=== PATIENT | male | born 1995 | race Asian ===

== ENCOUNTER 2016-12-18 15:21 | Emergency (ER) | payer SELFPAY ==
[~2016-12-18] VITALS: Wt 63.0 kg
[2016-12-18 15:26] VITALS: Wt 63.0 kg
[2016-12-18] MEDS ORDERED: SOD CHLORIDE 0.9% 1,000 ML IV STA (16:07)
[2016-12-18] MEDS ORDERED: KETOROLAC 30 MG INJ IV STA (16:07)
--- NOTE | 2016-12-18 17:53 | RADRPT ---
PROCEDURE: CT Abdomen and Pelvis without contrast. CLINICAL INDICATION: Abdominal and pelvic pain. Lower abdominal pain. TECHNIQUE: CT scan of the abdomen and pelvis without contrast was performed. Coronal and sagittal reformatted images were obtained from the axial source images. Images were reviewed on a [employer] PACS workstation. Total exam DLP is 442.95 mGy-cm. CTDIvol is 7.85 mGy. One or more of the [facility] dose reduction techniques were used: Automated exposure control, adjustment of the mA and/or kV according to patient size, use of iterative reconstruction technique. COMPARISON: None. FINDINGS: The lung bases are normal. There is no pleural effusion. The liver is normal in size and attenuation. There is no focal hepatic lesion. The gallbladder and bile ducts are normal. The spleen is normal in size. There is no focal splenic lesion. Both adrenals are normal with no enlargement or mass. The pancreas is unremarkable with no mass or evidence of pancreatitis. There is no renal mass or hydronephrosis. There is no renal calculus or ureteral calculus. The abdominal aorta is not dilated. There is no retroperitoneal lymphadenopathy or mass. There is no pelvic lymphadenopathy or mass. The bladder and distal ureters are normal. The periappendiceal region is unremarkable with no evidence of appendicitis. The appendix is well se en and appears normal. The bowel and mesentery are normal. There is no free fluid or free gas. The osseous structures are unremarkable with no fracture or lytic lesion. IMPRESSION: 1. No urinary tract calculus or hydronephrosis. 2. Normal appendix. 3. Unremarkable CT scan of the abdomen and pelvis. RPTAT: QQ .Kishore Chavez MD, Date Time Electronically viewed and signed by .Kishore Chavez MD, on 12/18/2016 17:53 .R/
--- NOTE | 2016-12-18 17:53 | RADRPT ---
PROCEDURE: CT Abdomen and Pelvis without contrast. CLINICAL INDICATION: Abdominal and pelvic pain. Lower abdominal pain. TECHNIQUE: CT scan of the abdomen and pelvis without contrast was performed. Coronal and sagittal reformatted images were obtained from the axial source images. Images were reviewed on a [employer] PACS workstation. Total exam DLP is 442.95 mGy-cm. CTDIvol is 7.85 mGy. One or more of the [facility] dose reduction techniques were used: Automated exposure control, adjustment of the mA and/or kV according to patient size, use of iterative reconstruction technique. COMPARISON: None. FINDINGS: The lung bases are normal. There is no pleural effusion. The liver is normal in size and attenuation. There is no focal hepatic lesion. The gallbladder and bile ducts are normal. The spleen is normal in size. There is no focal splenic lesion. Both adrenals are normal with no enlargement or mass. The pancreas is unremarkable with no mass or evidence of pancreatitis. There is no renal mass or hydronephrosis. There is no renal calculus or ureteral calculus. The abdominal aorta is not dilated. There is no retroperitoneal lymphadenopathy or mass. There is no pelvic lymphadenopathy or mass. The bladder and distal ureters are normal. The periappendiceal region is unremarkable with no evidence of appendicitis. The appendix is well se en and appears normal. The bowel and mesentery are normal. There is no free fluid or free gas. The osseous structures are unremarkable with no fracture or lytic lesion. IMPRESSION: 1. No urinary tract calculus or hydronephrosis. 2. Normal appendix. 3. Unremarkable CT scan of the abdomen and pelvis. RPTAT: QQ .Kishore Chavez MD, Date Time Electronically viewed and signed by .Kishore Chavez MD, on 12/18/2016 17:53 .R/
[2016-12-18 19:16] VITALS: PULSE 96; RESP 15; TEMP 98.1
[2016-12-18] MEDS ORDERED: ACET325T33 PO (19:23)
[2016-12-18] MEDS ORDERED: IBUP800T25 PO (19:23)
[2016-12-18 19:32] VITALS: BP 90/66
--- NOTE | 2016-12-18 20:26 | ERD ---
ER Documentation Chief Complaint Chief Complaint bib ems c/o abd pain, n/v, sore thoat, farrell HPI 21-year-old male coming in complaining of fever 4 days with headache, sore throat and dry cough. Has mild abdominal pain. Denies vomiting. Denies change in urination or bowel movement. Denies sick contacts. Has not taken medications for fever however has taken Mucinex. Denies medical problems. Denies allergies to medications. Surgical history: Denies. Social history: Smokes marijuana daily. ROS All systems reviewed and are negative except as per history of present illness. Medications Home Meds Active Scripts Ibuprofen* (Motrin*) 800 Mg Tab, 800 MG PO Q6, #30 TAB Prov:RADHA HILTON PA-C 12/18/16 Acetaminophen* (Tylenol*) 325 Mg Tablet, 1 TAB PO Q6 Y for PAIN AND OR ELEVATED TEMP, #20 TAB Prov:RADHA HILTON PA-C 12/18/16 Allergies Allergies: Coded Allergies: No Known Allergy (Unverified , 12/18/16) PMhx/Soc Medical and Surgical Hx: pt denies Medical Hx, pt denies Surgical Hx History of Surgery: No Anesthesia Reaction: No Hx Neurological Disorder: No Hx Respiratory Disorders: No Hx Cardiac Disorders: No Hx Psychiatric Problems: No Hx Miscellaneous Medical Probl: No Hx Alcohol Use: No (denies) Hx Substance Use: No (denies) Hx Tobacco Use: No (denies) Smoking Status: Never smoker Physical Exam Vitals Vital Signs Date Time Temp Pulse Resp B/P Pulse Ox O2 Delivery O2 Flow Rate FiO2 12/18/16 19:32 90/66 12/18/16 19:16 98.1 96 15 89/53 98 Room Air 12/18/16 15:26 100.3 138 20 111/55 98 Physical Exam GENERAL: The patient is well-appearing, well-nourished, in no acute distress HEENT: Atraumatic. Conjunctivae are pink. Pupils equal, round, and reactive to light. There is no scleral icterus. Tympanic membranes clear bilaterally. Oropharynx clear. No nystagmus or photophobia. NECK: C-spine is soft and supple. There is no meningismus. There is no cervical lymphadenopathy. CHEST: Clear to auscultation bilaterally. There are no rales, wheezes or rhonchi. HEART: Regular rate and rhythm. No murmurs, clicks, rubs or gallops. No S3 or S4. ABDOMEN: Normoactive bowel sounds. No distention. No organomegaly. Mild tenderness palpation over the umbilicus. BACK: No midline or flank tenderness. Result Diagram: 12/18/16 1637 12/18/16 1637 Results 24 hrs Laboratory Tests Test 12/18/16 16:30 12/18/16 16:37 Urine Color STRAW Urine Clarity CLEAR Urine pH 7.0 Urine Specific Hardin 1.003 Urine Ketones NEGATIVEmg/dL Urine Nitrite NEGATIVEmg/dL Urine Bilirubin NEGATIVEmg/dL Urine Urobilinogen NEGATIVEmg/dL Urine Leukocyte Esterase NEGATIVELeu/ul Urine Hemoglobin NEGATIVEmg/dL Urine Glucose NEGATIVEmg/dL Urine Total Protein NEGATIVEmg/dl Urine Opiates Screen Negative Urine Barbiturates Negative Urine Amphetamines Screen Negative Urine Benzodiazepines Screen Negative Urine Cocaine Screen Negative Urine Cannabinoids Positive White Blood Count 11.810^3/ul Red Blood Count 5.2010^6/ul Hemoglobin 15.7g/dl Hematocrit 45.7% Mean Corpuscular Volume 87.9fl Mean Corpuscular Hemoglobin 30.2pg Mean Corpuscular Hemoglobin Concent 34.4g/dl Red Cell Distribution Width 13.3% Platelet Count 37943^3/UL Mean Platelet Volume 11.6fl Neutrophils % 84.2% Lymphocytes % 7.2% Monocytes % 7.1% Eosinophils % 0.2% Basophils % 0.5% Nucleated Red Blood Cells % 0.0/100WBC Neutrophils # 9.910^3/ul Lymphocytes # 0.910^3/ul Monocytes # 0.810^3/ul Eosinophils # 0.010^3/ul Basophils # 0.110^3/ul Nucleated Red Blood Cells # 0.010^3/ul Sodium Level 139mmol/L Potassium Level 4.2mmol/L Chloride Level 102mmol/L Carbon Dioxide Level 28mmol/L Anion Gap 13 Blood Urea Nitrogen 9mg/dl Creatinine 0.70mg/dl Glucose Level 88mg/dl Lactic Acid Level 1.0mmol/L Calcium Level 8.9mg/dl Total Bilirubin 0.3mg/dl Direct Bilirubin 0.00mg/dl Indirect Bilirubin 0.3mg/dl Aspartate Amino Transf (AST/SGOT) 104IU/L Alanine Aminotransferase (ALT/SGPT) 148IU/L Alkaline Phosphatase 143IU/L Total Protein 6.9g/dl Albumin 4.2g/dl Globulin 2.70g/dl Albumin/Globulin Ratio 1.55 Lipase 42U/L Current Medications Medications (Trade) Dose Ordered Sig/Osbaldo Route PRN Reason Start Time Stop Time Status Last Admin Dose Admin Sodium Chloride (NS) 1,000 ml @ 1,000 mls/hr Q1H STAT IV 12/18/16 16:07 12/18/16 17:06 DC 12/18/16 16:52 Ketorolac Tromethamine (Toradol) 30 mg ONCE STAT IV 12/18/16 16:07 12/18/16 16:10 DC 12/18/16 16:52 Procedures/MDM DIAGNOSTIC IMAGING REPORT Patient: JOSE ELIAS SMITH : 1995 Age: 21 Sex: M MR #: [id number] DOS: 12/18/16 1607 Ordering MD: MILIND HILTON PA-C Location: E Room/Bed: PROCEDURE: CT Abdomen and Pelvis without contrast. CLINICAL INDICATION: Abdominal and pelvic pain. Lower abdominal pain. TECHNIQUE: CT scan of the abdomen and pelvis without contrast was performed. Coronal and sagittal reformatted images were obtained from the axial source images. Images were reviewed on a high-resolution PACS workstation. Total exam DLP is 442.95 mGy-cm. CTDIvol is 7.85 mGy. One or more of the following dose reduction techniques were used: Automated exposure control, adjustment of the mA and/or kV according to patient size, use of iterative reconstruction technique. COMPARISON: None. FINDINGS: The lung bases are normal. There is no pleural effusion. The liver is normal in size and attenuation. There is no focal hepatic lesion. The gallbladder and bile ducts are normal. The spleen is normal in size. There is no focal splenic lesion. Both adrenals are normal with no enlargement or mass. The pancreas is unremarkable with no mass or evidence of pancreatitis. There is no renal mass or hydronephrosis. There is no renal calculus or ureteral calculus. The abdominal aorta is not dilated. There is no retroperitoneal lymphadenopathy or mass. There is no pelvic lymphadenopathy or mass. The bladder and distal ureters are normal. The periappendiceal region is unremarkable with no evidence of appendicitis. The appendix is well seen and appears normal. The bowel and mesentery are normal. There is no free fluid or free gas. The osseous structures are unremarkable with no fracture or lytic lesion. IMPRESSION: 1. No urinary tract calculus or hydronephrosis. 2. Normal appendix. 3. Unremarkable CT scan of the abdomen and pelvis. ER course: 1 L normal saline given. IV Toradol given. Upon reevaluation patient's symptoms had improved and patient was feeling much better. MDM: 21-year-old male complaining of URI symptoms with abdominal pain. Patient' s exams are not concerning and CT scan is within normal limits. Patient's blood work is within normal limits. Patient likely has viral illness. Patient does not have nuchal rigidity so I will suspicion for meningitis. Patient is discharged with strict ER precautions and recommended to return to the ER symptoms change or worsen. Patient's exam on reevaluation was within normal limits and symptoms had improved. Patient is recommended to follow-up with primary care within 1-2 days for close evaluation. All questions answered at discharge. Departure Diagnosis: Primary Impression: Viral illness Additional Impression: Fever Condition: Stable Patient Instructions: Fever Control (Adult) Referrals: COMMUNITY CLINICS YOU HAVE RECEIVED A MEDICAL SCREENING EXAM AND THE RESULTS INDICATE THAT YOU DO NOT HAVE A CONDITION THAT REQUIRES URGENT TREATMENT IN THE EMERGENCY DEPARTMENT. FURTHER EVALUATION AND TREATMENT OF YOUR CONDITION CAN WAIT UNTIL YOU ARE SEEN IN YOUR DOCTORS OFFICE WITHIN THE NEXT 1-2 DAYS. IT IS YOUR RESPONSIBILITY TO MAKE AN APPOINTMENT FOR FOLOW-UP CARE. IF YOU HAVE A PRIMARY DOCTOR --you should call your primary doctor and schedule an appointment IF YOU DO NOT HAVE A PRIMARY DOCTOR YOU CAN CALL OUR PHYSICIAN REFERRAL HOTLINE AT IF YOU CAN NOT AFFORD TO SEE A PHYSICIAN YOU CAN CHOSE FROM THE FOLLOWING [facility] CLINICS [facility] [address] [facility] [address] [facility]. [facility] [address] [facility] [address] [facility] [address] [facility]. [facility]. [address] Additional Instructions: FOLLOW UP WITH YOUR PRIMARY CARE PHYSICIAN TOMORROW.Return to this facility if you are not improving as expected. RADHA HILTON PA-C Dec 18, 2016 20:26
--- NOTE | 2016-12-18 20:26 | ERD ---
ER Documentation Chief Complaint Chief Complaint bib ems c/o abd pain, n/v, sore thoat, farrell HPI 21-year-old male coming in complaining of fever 4 days with headache, sore throat and dry cough. Has mild abdominal pain. Denies vomiting. Denies change in urination or bowel movement. Denies sick contacts. Has not taken medications for fever however has taken Mucinex. Denies medical problems. Denies allergies to medications. Surgical history: Denies. Social history: Smokes marijuana daily. ROS All systems reviewed and are negative except as per history of present illness. Medications Home Meds Active Scripts Ibuprofen* (Motrin*) 800 Mg Tab, 800 MG PO Q6, #30 TAB Prov:RADHA HILTON PA-C 12/18/16 Acetaminophen* (Tylenol*) 325 Mg Tablet, 1 TAB PO Q6 Y for PAIN AND OR ELEVATED TEMP, #20 TAB Prov:RADHA HILTON PA-C 12/18/16 Allergies Allergies: Coded Allergies: No Known Allergy (Unverified , 12/18/16) PMhx/Soc Medical and Surgical Hx: pt denies Medical Hx, pt denies Surgical Hx History of Surgery: No Anesthesia Reaction: No Hx Neurological Disorder: No Hx Respiratory Disorders: No Hx Cardiac Disorders: No Hx Psychiatric Problems: No Hx Miscellaneous Medical Probl: No Hx Alcohol Use: No (denies) Hx Substance Use: No (denies) Hx Tobacco Use: No (denies) Smoking Status: Never smoker Physical Exam Vitals Vital Signs Date Time Temp Pulse Resp B/P Pulse Ox O2 Delivery O2 Flow Rate FiO2 12/18/16 19:32 90/66 12/18/16 19:16 98.1 96 15 89/53 98 Room Air 12/18/16 15:26 100.3 138 20 111/55 98 Physical Exam GENERAL: The patient is well-appearing, well-nourished, in no acute distress HEENT: Atraumatic. Conjunctivae are pink. Pupils equal, round, and reactive to light. There is no scleral icterus. Tympanic membranes clear bilaterally. Oropharynx clear. No nystagmus or photophobia. NECK: C-spine is soft and supple. There is no meningismus. There is no cervical lymphadenopathy. CHEST: Clear to auscultation bilaterally. There are no rales, wheezes or rhonchi. HEART: Regular rate and rhythm. No murmurs, clicks, rubs or gallops. No S3 or S4. ABDOMEN: Normoactive bowel sounds. No distention. No organomegaly. Mild tenderness palpation over the umbilicus. BACK: No midline or flank tenderness. Result Diagram: 12/18/16 1637 12/18/16 1637 Results 24 hrs Laboratory Tests Test 12/18/16 16:30 12/18/16 16:37 Urine Color STRAW Urine Clarity CLEAR Urine pH 7.0 Urine Specific Cecil 1.003 Urine Ketones NEGATIVEmg/dL Urine Nitrite NEGATIVEmg/dL Urine Bilirubin NEGATIVEmg/dL Urine Urobilinogen NEGATIVEmg/dL Urine Leukocyte Esterase NEGATIVELeu/ul Urine Hemoglobin NEGATIVEmg/dL Urine Glucose NEGATIVEmg/dL Urine Total Protein NEGATIVEmg/dl Urine Opiates Screen Negative Urine Barbiturates Negative Urine Amphetamines Screen Negative Urine Benzodiazepines Screen Negative Urine Cocaine Screen Negative Urine Cannabinoids Positive White Blood Count 11.810^3/ul Red Blood Count 5.2010^6/ul Hemoglobin 15.7g/dl Hematocrit 45.7% Mean Corpuscular Volume 87.9fl Mean Corpuscular Hemoglobin 30.2pg Mean Corpuscular Hemoglobin Concent 34.4g/dl Red Cell Distribution Width 13.3% Platelet Count 09228^3/UL Mean Platelet Volume 11.6fl Neutrophils % 84.2% Lymphocytes % 7.2% Monocytes % 7.1% Eosinophils % 0.2% Basophils % 0.5% Nucleated Red Blood Cells % 0.0/100WBC Neutrophils # 9.910^3/ul Lymphocytes # 0.910^3/ul Monocytes # 0.810^3/ul Eosinophils # 0.010^3/ul Basophils # 0.110^3/ul Nucleated Red Blood Cells # 0.010^3/ul Sodium Level 139mmol/L Potassium Level 4.2mmol/L Chloride Level 102mmol/L Carbon Dioxide Level 28mmol/L Anion Gap 13 Blood Urea Nitrogen 9mg/dl Creatinine 0.70mg/dl Glucose Level 88mg/dl Lactic Acid Level 1.0mmol/L Calcium Level 8.9mg/dl Total Bilirubin 0.3mg/dl Direct Bilirubin 0.00mg/dl Indirect Bilirubin 0.3mg/dl Aspartate Amino Transf (AST/SGOT) 104IU/L Alanine Aminotransferase (ALT/SGPT) 148IU/L Alkaline Phosphatase 143IU/L Total Protein 6.9g/dl Albumin 4.2g/dl Globulin 2.70g/dl Albumin/Globulin Ratio 1.55 Lipase 42U/L Current Medications Medications (Trade) Dose Ordered Sig/Osbaldo Route PRN Reason Start Time Stop Time Status Last Admin Dose Admin Sodium Chloride (NS) 1,000 ml @ 1,000 mls/hr Q1H STAT IV 12/18/16 16:07 12/18/16 17:06 DC 12/18/16 16:52 Ketorolac Tromethamine (Toradol) 30 mg ONCE STAT IV 12/18/16 16:07 12/18/16 16:10 DC 12/18/16 16:52 Procedures/MDM DIAGNOSTIC IMAGING REPORT Patient: JOSE ELIAS SMITH : 1995 Age: 21 Sex: M MR #: [id number] DOS: 12/18/16 1607 Ordering MD: MILIND HILTON PA-C Location: E Room/Bed: PROCEDURE: CT Abdomen and Pelvis without contrast. CLINICAL INDICATION: Abdominal and pelvic pain. Lower abdominal pain. TECHNIQUE: CT scan of the abdomen and pelvis without contrast was performed. Coronal and sagittal reformatted images were obtained from the axial source images. Images were reviewed on a high-resolution PACS workstation. Total exam DLP is 442.95 mGy-cm. CTDIvol is 7.85 mGy. One or more of the following dose reduction techniques were used: Automated exposure control, adjustment of the mA and/or kV according to patient size, use of iterative reconstruction technique. COMPARISON: None. FINDINGS: The lung bases are normal. There is no pleural effusion. The liver is normal in size and attenuation. There is no focal hepatic lesion. The gallbladder and bile ducts are normal. The spleen is normal in size. There is no focal splenic lesion. Both adrenals are normal with no enlargement or mass. The pancreas is unremarkable with no mass or evidence of pancreatitis. There is no renal mass or hydronephrosis. There is no renal calculus or ureteral calculus. The abdominal aorta is not dilated. There is no retroperitoneal lymphadenopathy or mass. There is no pelvic lymphadenopathy or mass. The bladder and distal ureters are normal. The periappendiceal region is unremarkable with no evidence of appendicitis. The appendix is well seen and appears normal. The bowel and mesentery are normal. There is no free fluid or free gas. The osseous structures are unremarkable with no fracture or lytic lesion. IMPRESSION: 1. No urinary tract calculus or hydronephrosis. 2. Normal appendix. 3. Unremarkable CT scan of the abdomen and pelvis. ER course: 1 L normal saline given. IV Toradol given. Upon reevaluation patient's symptoms had improved and patient was feeling much better. MDM: 21-year-old male complaining of URI symptoms with abdominal pain. Patient' s exams are not concerning and CT scan is within normal limits. Patient's blood work is within normal limits. Patient likely has viral illness. Patient does not have nuchal rigidity so I will suspicion for meningitis. Patient is discharged with strict ER precautions and recommended to return to the ER symptoms change or worsen. Patient's exam on reevaluation was within normal limits and symptoms had improved. Patient is recommended to follow-up with primary care within 1-2 days for close evaluation. All questions answered at discharge. Departure Diagnosis: Primary Impression: Viral illness Additional Impression: Fever Condition: Stable Patient Instructions: Fever Control (Adult) Referrals: COMMUNITY CLINICS YOU HAVE RECEIVED A MEDICAL SCREENING EXAM AND THE RESULTS INDICATE THAT YOU DO NOT HAVE A CONDITION THAT REQUIRES URGENT TREATMENT IN THE EMERGENCY DEPARTMENT. FURTHER EVALUATION AND TREATMENT OF YOUR CONDITION CAN WAIT UNTIL YOU ARE SEEN IN YOUR DOCTORS OFFICE WITHIN THE NEXT 1-2 DAYS. IT IS YOUR RESPONSIBILITY TO MAKE AN APPOINTMENT FOR FOLOW-UP CARE. IF YOU HAVE A PRIMARY DOCTOR --you should call your primary doctor and schedule an appointment IF YOU DO NOT HAVE A PRIMARY DOCTOR YOU CAN CALL OUR PHYSICIAN REFERRAL HOTLINE AT IF YOU CAN NOT AFFORD TO SEE A PHYSICIAN YOU CAN CHOSE FROM THE FOLLOWING [facility] CLINICS [facility] [address] [facility] [address] [facility]. [facility] [address] [facility] [address] [facility] [address] [facility]. [facility]. [address] Additional Instructions: FOLLOW UP WITH YOUR PRIMARY CARE PHYSICIAN TOMORROW.Return to this facility if you are not improving as expected. RADHA HILTON PA-C Dec 18, 2016 20:26
--- NOTE | 2016-12-18 20:26 | ERD ---
ER Documentation Chief Complaint Chief Complaint bib ems c/o abd pain, n/v, sore thoat, farrell HPI 21-year-old male coming in complaining of fever 4 days with headache, sore throat and dry cough. Has mild abdominal pain. Denies vomiting. Denies change in urination or bowel movement. Denies sick contacts. Has not taken medications for fever however has taken Mucinex. Denies medical problems. Denies allergies to medications. Surgical history: Denies. Social history: Smokes marijuana daily. ROS All systems reviewed and are negative except as per history of present illness. Medications Home Meds Active Scripts Ibuprofen* (Motrin*) 800 Mg Tab, 800 MG PO Q6, #30 TAB Prov:RADHA HILTON PA-C 12/18/16 Acetaminophen* (Tylenol*) 325 Mg Tablet, 1 TAB PO Q6 Y for PAIN AND OR ELEVATED TEMP, #20 TAB Prov:RADHA HILTON PA-C 12/18/16 Allergies Allergies: Coded Allergies: No Known Allergy (Unverified , 12/18/16) PMhx/Soc Medical and Surgical Hx: pt denies Medical Hx, pt denies Surgical Hx History of Surgery: No Anesthesia Reaction: No Hx Neurological Disorder: No Hx Respiratory Disorders: No Hx Cardiac Disorders: No Hx Psychiatric Problems: No Hx Miscellaneous Medical Probl: No Hx Alcohol Use: No (denies) Hx Substance Use: No (denies) Hx Tobacco Use: No (denies) Smoking Status: Never smoker Physical Exam Vitals Vital Signs Date Time Temp Pulse Resp B/P Pulse Ox O2 Delivery O2 Flow Rate FiO2 12/18/16 19:32 90/66 12/18/16 19:16 98.1 96 15 89/53 98 Room Air 12/18/16 15:26 100.3 138 20 111/55 98 Physical Exam GENERAL: The patient is well-appearing, well-nourished, in no acute distress HEENT: Atraumatic. Conjunctivae are pink. Pupils equal, round, and reactive to light. There is no scleral icterus. Tympanic membranes clear bilaterally. Oropharynx clear. No nystagmus or photophobia. NECK: C-spine is soft and supple. There is no meningismus. There is no cervical lymphadenopathy. CHEST: Clear to auscultation bilaterally. There are no rales, wheezes or rhonchi. HEART: Regular rate and rhythm. No murmurs, clicks, rubs or gallops. No S3 or S4. ABDOMEN: Normoactive bowel sounds. No distention. No organomegaly. Mild tenderness palpation over the umbilicus. BACK: No midline or flank tenderness. Result Diagram: 12/18/16 1637 12/18/16 1637 Results 24 hrs Laboratory Tests Test 12/18/16 16:30 12/18/16 16:37 Urine Color STRAW Urine Clarity CLEAR Urine pH 7.0 Urine Specific [place] 1.003 Urine Ketones NEGATIVEmg/dL Urine Nitrite NEGATIVEmg/dL Urine Bilirubin NEGATIVEmg/dL Urine Urobilinogen NEGATIVEmg/dL Urine Leukocyte Esterase NEGATIVELeu/ul Urine Hemoglobin NEGATIVEmg/dL Urine Glucose NEGATIVEmg/dL Urine Total Protein NEGATIVEmg/dl Urine Opiates Screen Negative Urine Barbiturates Negative Urine Amphetamines Screen Negative Urine Benzodiazepines Screen Negative Urine Cocaine Screen Negative Urine Cannabinoids Positive White Blood Count 11.810^3/ul Red Blood Count 5.2010^6/ul Hemoglobin 15.7g/dl Hematocrit 45.7% Mean Corpuscular Volume 87.9fl Mean Corpuscular Hemoglobin 30.2pg Mean Corpuscular Hemoglobin Concent 34.4g/dl Red Cell Distribution Width 13.3% Platelet Count 45286^3/UL Mean Platelet Volume 11.6fl Neutrophils % 84.2% Lymphocytes % 7.2% Monocytes % 7.1% Eosinophils % 0.2% Basophils % 0.5% Nucleated Red Blood Cells % 0.0/100WBC Neutrophils # 9.910^3/ul Lymphocytes # 0.910^3/ul Monocytes # 0.810^3/ul Eosinophils # 0.010^3/ul Basophils # 0.110^3/ul Nucleated Red Blood Cells # 0.010^3/ul Sodium Level 139mmol/L Potassium Level 4.2mmol/L Chloride Level 102mmol/L Carbon Dioxide Level 28mmol/L Anion Gap 13 Blood Urea Nitrogen 9mg/dl Creatinine 0.70mg/dl Glucose Level 88mg/dl Lactic Acid Level 1.0mmol/L Calcium Level 8.9mg/dl Total Bilirubin 0.3mg/dl Direct Bilirubin 0.00mg/dl Indirect Bilirubin 0.3mg/dl Aspartate Amino Transf (AST/SGOT) 104IU/L Alanine Aminotransferase (ALT/SGPT) 148IU/L Alkaline Phosphatase 143IU/L Total Protein 6.9g/dl Albumin 4.2g/dl Globulin 2.70g/dl Albumin/Globulin Ratio 1.55 Lipase 42U/L Current Medications Medications (Trade) Dose Ordered Sig/Osbaldo Route PRN Reason Start Time Stop Time Status Last Admin Dose Admin Sodium Chloride (NS) 1,000 ml @ 1,000 mls/hr Q1H STAT IV 12/18/16 16:07 12/18/16 17:06 DC 12/18/16 16:52 Ketorolac Tromethamine (Toradol) 30 mg ONCE STAT IV 12/18/16 16:07 12/18/16 16:10 DC 12/18/16 16:52 Procedures/MDM DIAGNOSTIC IMAGING REPORT Patient: JOSE ELIAS SMITH : 1995 Age: 21 Sex: M MR #: [id number] DOS: 12/18/16 1607 Ordering MD: MILIND HILTON PA-C Location: E Room/Bed: PROCEDURE: CT Abdomen and Pelvis without contrast. CLINICAL INDICATION: Abdominal and pelvic pain. Lower abdominal pain. TECHNIQUE: CT scan of the abdomen and pelvis without contrast was performed. Coronal and sagittal reformatted images were obtained from the axial source images. Images were reviewed on a high-resolution PACS workstation. Total exam DLP is 442.95 mGy-cm. CTDIvol is 7.85 mGy. One or more of the following dose reduction techniques were used: Automated exposure control, adjustment of the mA and/or kV according to patient size, use of iterative reconstruction technique. COMPARISON: None. FINDINGS: The lung bases are normal. There is no pleural effusion. The liver is normal in size and attenuation. There is no focal hepatic lesion. The gallbladder and bile ducts are normal. The spleen is normal in size. There is no focal splenic lesion. Both adrenals are normal with no enlargement or mass. The pancreas is unremarkable with no mass or evidence of pancreatitis. There is no renal mass or hydronephrosis. There is no renal calculus or ureteral calculus. The abdominal aorta is not dilated. There is no retroperitoneal lymphadenopathy or mass. There is no pelvic lymphadenopathy or mass. The bladder and distal ureters are normal. The periappendiceal region is unremarkable with no evidence of appendicitis. The appendix is well seen and appears normal. The bowel and mesentery are normal. There is no free fluid or free gas. The osseous structures are unremarkable with no fracture or lytic lesion. IMPRESSION: 1. No urinary tract calculus or hydronephrosis. 2. Normal appendix. 3. Unremarkable CT scan of the abdomen and pelvis. ER course: 1 L normal saline given. IV Toradol given. Upon reevaluation patient's symptoms had improved and patient was feeling much better. MDM: 21-year-old male complaining of URI symptoms with abdominal pain. Patient' s exams are not concerning and CT scan is within normal limits. Patient's blood work is within normal limits. Patient likely has viral illness. Patient does not have nuchal rigidity so I will suspicion for meningitis. Patient is discharged with strict ER precautions and recommended to return to the ER symptoms change or worsen. Patient's exam on reevaluation was within normal limits and symptoms had improved. Patient is recommended to follow-up with primary care within 1-2 days for close evaluation. All questions answered at discharge. Departure Diagnosis: Primary Impression: Viral illness Additional Impression: Fever Condition: Stable Patient Instructions: Fever Control (Adult) Referrals: COMM[facility]ITY CLIN[facility] YOU HAVE RECEIVED A MEDICAL SCREENING EXAM AND THE RESULTS INDICATE THAT YOU DO NOT HAVE A CONDITION THAT REQUIRES URGENT TREATMENT IN THE EMERGENCY DEPARTMENT. FURTHER EVALUATION AND TREATMENT OF YOUR CONDITION CAN WAIT UNTIL YOU ARE SEEN IN YOUR DOCTORS OFFICE WITHIN THE NEXT 1-2 DAYS. IT IS YOUR RESPONSIBILITY TO MAKE AN APPOINTMENT FOR FOLOW-UP CARE. IF YOU HAVE A PRIMARY DOCTOR --you should call your primary doctor and schedule an appointment IF YOU DO NOT HAVE A PRIMARY DOCTOR YOU CAN CALL OUR PHYSICIAN REFERRAL HOTLINE AT IF YOU CAN NOT AFFORD TO SEE A PHYSICIAN YOU CAN CHOSE FROM THE FOLLOWING [facility] [address] [facility] [address] [facility] [facility] [address] [facility] [address] [facility] [address] [facility]. [facility]. [address] Additional Instructions: FOLLOW UP WITH YOUR PRIMARY CARE PHYSICIAN TOMORROW.Return to this facility if you are not improving as expected. RADHA HILTON PA-C Dec 18, 2016 20:26
== END 2016-12-18 19:27 | disposition home or self-care (01) ==
LOC: FTE 15:21
DX: B34.9 Viral infection, unspecified (principal); R10.31 Right lower quadrant pain
CPT/HCPCS: 36415; 74176; 80053; 80307; 81003; 83605; 83690; 85025; 87040; 93005; 96374; 99285; J1885; J7030